=== PATIENT | male | born 1950 | race Caucasian/White ===

== ENCOUNTER 2017-06-09 08:36 | Emergency (ER) | payer MEDICAID, OTHER ==
[2017-06-09 08:36] VITALS: BMI 30.7
[2017-06-09 08:48] VITALS: RESP 18; TEMP 98.6
[2017-06-09] MEDS ORDERED: Lidocaine 5% Patch TD STA (09:14)
[2017-06-09] MEDS ORDERED: Lidocaine 5% Patch TD ONE (09:23)
[2017-06-09 10:36] VITALS: BP 142/82; PULSE 82; O2SAT 99
--- NOTE | 2017-06-09 11:11 | C.PDOC ---
History Of Present Illness 66 y/o male presents to ED with complaints of non radiating lower back pain for 9 days. Patient states pain is on the lower lumbar area and is a 8/10 increased with movement and sitting. Patient denies trauma, heavy lifting, fever, chills, numbness, bowel/bladder incontinence or any other complaints at this time. Time Seen by Provider: 06/09/17 09:10 Chief Complaint (Nursing): Back Pain History Per: Patient History/Exam Limitations: no limitations Onset/Duration Of Symptoms: Days Current Symptoms Are (Timing): Still Present Past Medical History Reviewed: Historical Data, Nursing Documentation, Vital Signs Vital Signs: Last Vital Signs Temp 98.6 F 06/09/17 10:35 Pulse 82 06/09/17 10:35 Resp 18 06/09/17 10:35 BP 142/82 06/09/17 10:35 Pulse Ox 99 06/09/17 11:11 - Medical History PMH: Gall Bladder Disease, HTN Denies: Chronic Kidney Disease Surgical History: Cholecystectomy Family History: States: Unknown Family Hx - Social History Hx Tobacco Use: No Hx Alcohol Use: No Hx Substance Use: No - Immunization History Hx Tetanus Toxoid Vaccination: No Hx Influenza Vaccination: No Hx Pneumococcal Vaccination: No Review Of Systems Except As Marked, All Systems Reviewed And Found Negative. Constitutional: Negative for: Fever, Chills Gastrointestinal: Negative for: Nausea, Vomiting, Diarrhea Genitourinary: Negative for: Dysuria, Frequency Musculoskeletal: Positive for: Back Pain Skin: Negative for: Rash Neurological: Negative for: Numbness Physical Exam - Physical Exam Appears: Non-toxic, No Acute Distress Skin: Normal Color, Warm, No Rash Head: Atraumatic, Normacephalic Oral Mucosa: Moist Neck: Normal ROM, Supple Chest: Symmetrical Gastrointestinal/Abdominal: Soft, No Tenderness, No Guarding, No Rebound Back: No CVA Tenderness, Other (Mild tenderness to lower lumbar area) Extremity: Normal ROM, Capillary Refill (<2 seconds) Neurological/Psych: Oriented x3, Normal Motor, Normal Sensation ED Course And Treatment O2 Sat by Pulse Oximetry: 99 (RA) Pulse Ox Interpretation: Normal Medical Decision Making Medical Decision Making: X-ray to rule out litic lesion or tumor Xray was normal Medication given to patient and was discharged home with advised follow up Disposition Counseled Patient/Family Regarding: Studies Performed, Diagnosis, Need For Followup, Rx Given - Disposition Referrals: [facility] [Outside] Disposition: HOME/ ROUTINE Disposition Time: 11:09 Condition: STABLE Prescriptions: diaZEpam [Valium] 5 mg PO TID #15 tab Ibuprofen [Motrin] 600 mg PO TID #15 tab Lidocaine 5% [Lidoderm] 1 ea TD DAILY #2 patch Instructions: Back Pain (ED) Forms: Gen Discharge Inst Iraqi, [facility] (Iraqi) - POA Present On Arrival: None - Clinical Impression Clinical Impression: Low back pain - Scribe Statement The provider has reviewed the documentation as recorded by the Scribe Dagmar Watt All medical record entries made by the Chloeibashley were at my direction and personally dictated by me. I have reviewed the chart and agree that the record accurately reflects my personal performance of the history, physical exam, medical decision making, and the department course for this patient. I have also personally directed, reviewed, and agree with the discharge instructions and disposition.
--- NOTE | 2017-06-09 14:56 | RAD ---
PROCEDURE: Radiographs of the Lumbar Spine. HISTORY: pain X 9 days, no trauma COMPARISON: No prior. FINDINGS: BONES: Lumbar lordotic straightening. . No listhesis. No fracture. Anterior L5-S1 spondylosis DISC SPACES: L5-S1 disc space narrowing OTHER FINDINGS: Cholecystectomy clips. Stool retention IMPRESSION: L5-S1 lordosis with degenerative disc space narrowing. No fracture subluxation. Lumbar spine straightening consistent with spasm and/or positioning. Stool retention
== END 2017-06-09 11:11 | disposition home or self-care (01) ==
LOC: C.ER 08:36
DX: M54.5 Low back pain (principal)

== ENCOUNTER 2017-06-15 20:40 | Emergency (ER) | payer MEDICAID ==
[2017-06-15 20:40] VITALS: BMI 30.7
[2017-06-15 21:10] VITALS: BP 137/86; RESP 18; TEMP 97.7
[2017-06-15] MEDS ORDERED: Lidocaine 5% Patch TD STA (21:42)
--- NOTE | 2017-06-15 21:46 | C.PDOC ---
History Of Present Illness 67 year old male presents to the ED with complaints of lower back pain beginning earlier today. Patient was seen Tuesday in the ED for similar complaints and given medications that he finished. X-Rays were taken Tuesday that were negative and he did not follow up with clinic. Patient denies new trauma, radiation of pain, or other complaints at this time. Time Seen by Provider: 06/15/17 21:26 Chief Complaint (Nursing): Back Pain History Per: Patient, Family () History/Exam Limitations: no limitations Onset/Duration Of Symptoms: Persistent, Worse Since (earlier today ) Current Symptoms Are (Timing): Still Present Quality Of Discomfort: "Pain" Previous Symptoms: Back Pain Associated Symptoms: None Exacerbating Factor(s): Movement Recent travel outside of the [place]: No Additional History Per: Prior Records Past Medical History Reviewed: Historical Data, Nursing Documentation, Vital Signs Vital Signs: Last Vital Signs Temp 97.7 F 06/15/17 21:06 Pulse 72 06/15/17 22:05 Resp 18 06/15/17 22:05 BP 137/86 06/15/17 21:06 Pulse Ox 98 06/15/17 22:05 - Medical History PMH: Gall Bladder Disease, HTN Surgical History: Cholecystectomy Family History: States: Unknown Family Hx - Social History Hx Tobacco Use: No Hx Alcohol Use: No Hx Substance Use: No - Immunization History Hx Tetanus Toxoid Vaccination: No Hx Influenza Vaccination: No Hx Pneumococcal Vaccination: No Review Of Systems Constitutional: Negative for: Fever, Chills Cardiovascular: Negative for: Chest Pain Respiratory: Negative for: Shortness of Breath Gastrointestinal: Negative for: Vomiting, Abdominal Pain Musculoskeletal: Positive for: Back Pain Neurological: Negative for: Weakness, Numbness Physical Exam - Physical Exam Appears: Non-toxic, No Acute Distress Skin: Warm, Dry, No Diaphoretic, No Pale, No Ecchymosis Head: Atraumatic, Normacephalic Eye(s): bilateral: Normal Inspection, EOMI Oral Mucosa: Moist Neck: Supple Chest: Symmetrical, No Deformity Cardiovascular: Rhythm Regular Respiratory: Normal Breath Sounds, No Rales, No Rhonchi, No Wheezing Gastrointestinal/Abdominal: Soft, No Tenderness, No Distention, No Guarding, No Rebound Back: Normal Inspection, No CVA Tenderness, No Vertebral Tenderness, No Muscle Spasm, Paraspinal Tenderness (paralumbar tenderness ) Extremity: Normal ROM, No Tenderness, No Deformity, No Swelling Neurological/Psych: Oriented x3, Normal Speech Gait: Steady ED Course And Treatment O2 Sat by Pulse Oximetry: 97 (room air ) Progress Note: Patient was given Tylenol, Motrin, Lidocaine 5%, and Valium. Reassessment Condition: Improved (Shortly after receiving medications, patient is asking for Rx. Will DC home withRX and instruct to follow up with his PMD Dr La) Disposition Counseled Patient/Family Regarding: Need For Followup, Rx Given - Disposition Disposition: HOME/ ROUTINE Disposition Time: 21:59 Condition: STABLE Additional Instructions: Por favor, siga con esquivel mdico para carmelo evaluacin ms [place] medicamentos para el dolor cuando sea necesario Prescriptions: Cyclobenzaprine [Cyclobenzaprine HCl] 10 mg PO TID #30 tab Ibuprofen [Motrin] 600 mg PO Q8 #30 tab Instructions: Acute Low Back Pain (DC) Forms: [employer] ([place] Citizen) Print Language: GABONESE - POA Present On Arrival: None - Clinical Impression Clinical Impression: Low back pain - 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 - Scribe Statement The provider has reviewed the documentation as recorded by the Scribe Mehreen Taylor All medical record entries made by the Chloeibashley were at my direction and personally dictated by me. I have reviewed the chart and agree that the record accurately reflects my personal performance of the history, physical exam, medical decision making, and the department course for this patient. I have also personally directed, reviewed, and agree with the discharge instructions and disposition.
[2017-06-15] MEDS ORDERED: Lidocaine 5% Patch TD ONE (21:53)
[2017-06-15 22:06] VITALS: PULSE 72
[2017-06-15 22:41] VITALS: O2SAT 97
== END 2017-06-15 22:05 | disposition home or self-care (01) ==
LOC: C.ER 20:40
DX: M54.5 Low back pain (principal)

== ENCOUNTER 2019-03-27 18:35 | Emergency (ER) | payer MEDICAID, MEDICARE ==
[2019-03-27 18:35] VITALS: BMI 30.7
[2019-03-27 19:17] VITALS: BP 117/73; PULSE 81; RESP 20; TEMP 98.4; O2SAT 96
[2019-03-27 20:37] LABS: URINE BILIRUBIN NEGATIVE (NEGATIVE); URINE BLOOD NEGATIVE (NEGATIVE); URINE CLARITY Clear (Clear); URINE COLOR Yellow (YELLOW); URINE GLUCOSE (UA) NORMAL (Normal); URINE PROTEIN NEGATIVE (NEGATIVE); URINE UROBILINOGEN NORMAL mg/dL (0.2-1.0)
[2019-03-27 20:39] LABS: URINE LEUKOCYTE ESTERASE 2+ Leu/uL (Negative)
[2019-03-27] MEDS ORDERED: Cefpodoxime (Vantin) 200 mg Tab PO STA (20:45)
--- NOTE | 2019-03-27 20:48 | C.PDOC ---
History Of Present Illness 68 year old male presents with burning on urination for the past 2 days. Patient denies issues with urination in the past, last time he had his prostate checked was 5 years ago. He feels like the pain with urination is starting to give him a headache. He has no taken anything for it. No Hx of UTI in the past. Denies fever. Time Seen by Provider: 03/27/19 19:21 Chief Complaint (Nursing): Male Genitourinary History Per: Patient History/Exam Limitations: no limitations Onset/Duration Of Symptoms: Days (2) Current Symptoms Are (Timing): Still Present Quality Of Discomfort: Burning Associated Symptoms: Other (Burning with urination). denies: Fever Alleviating Factors: None Recent travel outside of the [place]: No Past Medical History Reviewed: Historical Data, Nursing Documentation, Vital Signs Vital Signs: Last Vital Signs Temp 98.4 F 03/27/19 19:11 Pulse 81 03/27/19 19:11 Resp 20 03/27/19 19:11 BP 117/73 03/27/19 19:11 Pulse Ox 96 03/27/19 19:11 Primary Care Provider: Maria M La - Medical History PMH: Gall Bladder Disease, HTN Denies: Chronic Kidney Disease Surgical History: Cholecystectomy Family History: States: Unknown Family Hx - Social History Hx Tobacco Use: No Hx Alcohol Use: No Hx Substance Use: No - Immunization History Hx Tetanus Toxoid Vaccination: No Hx Influenza Vaccination: No Hx Pneumococcal Vaccination: No Review Of Systems Constitutional: Negative for: Fever, Chills Gastrointestinal: Negative for: Nausea, Vomiting, Abdominal Pain Genitourinary: Positive for: Other (Burning with urination) Musculoskeletal: Negative for: Back Pain Skin: Negative for: Rash Physical Exam - Physical Exam Appears: Well, Non-toxic, No Acute Distress Skin: Normal Color, Warm Head: Atraumatic, Normacephalic Eye(s): bilateral: Normal Inspection Gastrointestinal/Abdominal: Soft, No Tenderness Back: No CVA Tenderness Neurological/Psych: Oriented x3, Normal Speech ED Course And Treatment - Laboratory Results Lab Results: Urine Color Yellow (YELLOW) 03/27/19 20:30 Urine Clarity Clear (Clear) 03/27/19 20:30 Urine pH 7.0 (5.0-8.0) 03/27/19 20:30 Ur Specific [place] 1.016 (1.003-1.030) 03/27/19 20:30 Urine Protein Negative mg/dL (NEGATIVE) 03/27/19 20:30 Urine Glucose (UA) Normal mg/dL (Normal) 03/27/19 20:30 Urine Ketones Negative mg/dL (NEGATIVE) 03/27/19 20:30 Urine Blood Negative (NEGATIVE) 03/27/19 20:30 Urine Nitrate Negative (NEGATIVE) 03/27/19 20:30 Urine Bilirubin Negative (NEGATIVE) 03/27/19 20:30 Urine Urobilinogen Normal mg/dL (0.2-1.0) 03/27/19 20:30 Ur Leukocyte Esterase 2+ Diogo/uL (Negative) H 03/27/19 20:30 Urine WBC (Auto) 32 /hpf (0-5) H 03/27/19 20:30 Urine RBC (Auto) 2 /hpf (0-3) 03/27/19 20:30 O2 Sat by Pulse Oximetry: 96 (Room air) Pulse Ox Interpretation: Normal Medical Decision Making Medical Decision Making: Urine shows signs of infection, will treat for UTI and refer back to primary for follow up. Patient is afebrile with no flank pain and no AMS, appears to be uncomplicated UTI. 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 - Scribe Statement The provider has reviewed the documentation as recorded by the Scribe Darian Bailey All medical record entries made by the Chloeibe were at my direction and personally dictated by me. I have reviewed the chart and agree that the record accurately reflects my personal performance of the history, physical exam, medical decision making, and the department course for this patient. I have also personally directed, reviewed, and agree with the discharge instructions and disposition.
== END 2019-03-27 21:11 | disposition home or self-care (01) ==
LOC: C.ER 18:35
DX: N39.0 Urinary tract infection, site not specified (principal); I10 Essential (primary) hypertension